=== PATIENT | male | born 1990 | race African-American/Black ===

== ENCOUNTER 2020-01-15 14:42 | Emergency (ER) | payer OTHER ==
[~2020-01-15] VITALS: Ht 177.8 cm; Wt 65.8 kg
[~2020-01-15 14:42] MED LIST: CIPRO500 MG PO; IBUPROFEN 400400 M2 PO; IBUPROFEN 600600 M1 PO; NOHOMEMEDICATIONS; ULTRAM 50MG TAB50 MG PO
[2020-01-15] MEDS ORDERED: BACTRIM DS TAB1 EACH PO (18:04)
[2020-01-15 18:24] VITALS: BP 133/88
[2020-01-15] MEDS ORDERED: MOBIC15 MG PO (18:28)
== END 2020-01-15 18:26 | disposition home or self-care (01) ==
LOC: ER 14:42
DX: L02.412 Cutaneous abscess of left axilla (principal); M79.662 Pain in left lower leg; J45.909 Unspecified asthma, uncomplicated; Z91.041 Radiographic dye allergy status; Z91.013 Allergy to seafood